=== PATIENT | male | born 1960 | race African-American/Black ===

== ENCOUNTER 2017-05-11 09:22 | Emergency (ER) | payer BC, OTHER ==
[~2017-05-11] VITALS: Ht 175.3 cm; Wt 70.5 kg
[2017-05-11] MEDS ORDERED: KETOROLAC TROMETHAMINE 60 MG/2 ML VIAL IM ONE (11:00)
[2017-05-11] MEDS ORDERED: HYDROCODONE/ACETAMINOPHEN 10-325 MG TABLET PO ONE (11:00)
[2017-05-11 12:02] VITALS: BP 109/67
== END 2017-05-11 12:04 | disposition home or self-care (01) ==
LOC: EMS 09:31
DX: S83.91XA Sprain of unspecified site of right knee, initial encounter (principal); S83.92XA Sprain of unspecified site of left knee, initial encounter; F17.210 Nicotine dependence, cigarettes, uncomplicated; F12.90 Cannabis use, unspecified, uncomplicated; Z88.0 Allergy status to penicillin; X58.XXXA Exposure to other specified factors, initial encounter; Y93.89 Activity, other specified; Y92.89 Other specified places as the place of occurrence of the external cause; Y99.8 Other external cause status
CPT/HCPCS: 96372; 99283; J1885